=== PATIENT | male | born 1995 | race Caucasian/White ===

== ENCOUNTER → 2017-04-02 | Outpatient (CLI) | payer BC ==
--- NOTE | 2017-04-02 18:17 | DIAGNOSTIC IMAGING REPORT ---
L-SPINE MIN 4 VIEWS ROUTINE HISTORY: 21 years-old Male M54.5 Back pain, lumbosacral acute lower back pain without known injury COMPARISON: Chest radiograph of same day TECHNIQUE: 5 views of the lumbar spine FINDINGS: There are 5 lumbar type vertebral segments present. There is no evidence of spondylolysis or spondylolisthesis. No acute fracture, subluxation or significant degenerative changes. Soft tissues are unremarkable. IMPRESSION: 1. No acute fracture or subluxation. 2. No significant degenerative changes. The above report was generated using voice recognition software. It may contain grammatical, syntax or spelling errors. Electronically signed by: Shan Braswell M.D. 04/02/2017 6:16 PM Dictated Date/Time: 04/02/2017 6:15 PM
--- NOTE | 2017-04-02 18:20 | DIAGNOSTIC IMAGING REPORT ---
L RIBS UNILATERAL WITH PA CHEST HISTORY: 21 years-old Male ORDERED INCORRECTLY acute left-sided rib pain without known injury COMPARISON: Lumbar spine radiographs of same day TECHNIQUE: PA view of the chest with 4 views of the left ribs FINDINGS: Cardiac mediastinal and hilar silhouettes are within normal limits. There is no pneumothorax, pleural effusion, focal airspace consolidation or overt edema. No acute rib fracture identified. IMPRESSION: 1. No acute cardiopulmonary process. 2. No acute rib fracture or pneumothorax identified. The above report was generated using voice recognition software. It may contain grammatical, syntax or spelling errors. Electronically signed by: Shan Braswell M.D. 04/02/2017 6:18 PM Dictated Date/Time: 04/02/2017 6:16 PM
[2017-04-02 18:54] LABS: BASO % 0.4 %; BASO ABS # 0.02 K/uL (0-0.2); COMPLETE YES; EOS % 1.3 %; HEMATOCRIT 45.1 % (42-52); LYMPH % 24.5 %; LYMPH ABS # 1.34 K/uL (1.2-3.4); MEAN CELL VOLUME 91.1 fL (80-100); MEAN CORPUSCULAR HEMOGLOBIN 31.5 pg (25-34); MEAN CORPUSCULAR HGB CONC 34.6 g/dl (32-36); MEAN PLATELET VOLUME 11.5 fL (7.4-10.4); MONO % 10.8 %; PLATELET COUNT 204 K/uL (130-400); RED BLOOD COUNT 4.95 M/uL (4.7-6.1); WHITE BLOOD COUNT 5.48 K/uL (4.8-10.8)
[2017-04-02 19:14] LABS: ALT/SGPT 25 U/L (12-78); AMYLASE 69 U/L (25-115); BLOOD UREA NITROGEN 15 mg/dl (7-18); BUN/CREATININE RATIO 14.4 (10-20); CALCIUM 9.3 mg/dl (8.5-10.1); CARBON DIOXIDE 31 mmol/L (21-32); CHLORIDE 103 mmol/L (98-107); CREATININE 1.03 mg/dl (0.60-1.40); GLUCOSE 87 mg/dl (70-99); POTASSIUM 3.9 mmol/L (3.5-5.1); SODIUM 140 mmol/L (136-145)
[2017-04-02 19:17] LABS: ALB/GLOB RATIO 1.5 (0.9-2); ALKALINE PHOSPHATASE 53 U/L (45-117); AST/SGOT 16 U/L (15-37)
== END | disposition home or self-care (01) ==
LOC: C.RAD 17:15
PROVIDERS: ATTEND Internal Medicine
DX: M54.5 Low back pain (principal); R07.81 Pleurodynia; R10.9 Unspecified abdominal pain

== ENCOUNTER → 2017-09-27 | Outpatient (CLI) | payer BC ==
--- NOTE | 2017-09-27 09:43 | DIAGNOSTIC IMAGING REPORT ---
L VENOUS DOPP LOWER EXT UNILAT HISTORY: 21 years-old Male LEFT LEG PAIN/SWELLING acute left leg pain and swelling COMPARISON: Duplex venous Doppler study 05/05/2015 TECHNIQUE: Multiple real-time sonographic images of the deep venous structures were obtained assessing grayscale appearance, color and spectral flow FINDINGS: There is normal compressibility, phasicity, flow and augmentation within the left lower extremity deep venous structures. IMPRESSION: No sonographic evidence of deep venous thrombosis. The above report was generated using voice recognition software. It may contain grammatical, syntax or spelling errors. Electronically signed by: Shan Braswell M.D. 09/27/2017 9:41 AM Dictated Date/Time: 09/27/2017 9:40 AM
--- NOTE | 2017-09-27 09:44 | DIAGNOSTIC IMAGING REPORT ---
L EXTREMITY NONVASCULAR LIMITED HISTORY: 21 years-old Male POPLITEAL PAIN acute pain of the left popliteal distribution COMPARISON: Duplex venous Doppler study of same day TECHNIQUE: Multiple real-time sonographic images of the soft tissues within the left popliteal region were obtained assessing grayscale appearance and color flow FINDINGS/IMPRESSION: No aneurysm, focal fluid collection, soft tissue mass or other abnormality identified within the left popliteal fossa. The above report was generated using voice recognition software. It may contain grammatical, syntax or spelling errors. Electronically signed by: Shan Braswell M.D. 09/27/2017 9:42 AM Dictated Date/Time: 09/27/2017 9:41 AM
== END | disposition home or self-care (01) ==
LOC: C.ULTR 08:49
PROVIDERS: ATTEND Internal Medicine
DX: M79.609 Pain in unspecified limb (principal); M79.605 Pain in left leg; M79.89 Other specified soft tissue disorders